=== PATIENT | female | born 1960 | race Caucasian/White ===

== ENCOUNTER 2023-05-09 09:13 | Outpatient (CLI) | payer OTHER, SELFPAY | END 2023-05-09 09:14 | disposition home or self-care (01) | PROVIDERS: PCP Nurse Practitioner Family; Visit Provider Nurse Practitioner Family | DX: Z01.818 Encounter for other preprocedural examination (principal); E06.3 Autoimmune thyroiditis | CPT/HCPCS: 80048; 84443; 85025 ==

== ENCOUNTER 2023-05-15 07:03 | Day surgery (SDC) | payer MEDICAID, SELFPAY ==
[2023-05-15] VITALS (8 sets, daily range): BP systolic 102–126; BP diastolic 65–85; PULSE 58–90; RESP 16; TEMP 36.6; O2SAT 99–100; BMI 26.2
[2023-05-15] MEDS: LACTATED RINGERS 1000 ML 1,000 ML 100 ML IV (07:50)
[2023-05-15] MEDS: SODIUM CHLORIDE 0.9 % (FLUSH) 10 ML SYRINGE IVF (07:50)
[2023-05-15] MEDS: fentaNYL 100 MCG/2 ML inj IVP (07:53)
[2023-05-15] MEDS: MIDAZOLAM HCL 1 MG/ML inj IVP (07:53)
--- NOTE | 2023-05-15 08:11 | SUR.PREOP ---
TIME?OUT:?0753 PT/alexander milton RN/aric winslow CRNA/ aric michael CRNA?VERIFICATION?OF?SURGICAL?SITE,?PROCEDURE,?AND?CONSENT OBTAINED?PRIOR?TO?INVASIVE?PROCEDURE.
--- NOTE | 2023-05-15 08:22 | W.PM.H&PU ---
History & Physical Update History & Physical Update H&P Reviewed and patient assessed: No changes noted
[2023-05-15] MEDS: CEFAZOLIN 2 GM in 0.9 % SODIUM CHLORIDE Mini-bag 100 ML IVPB (08:24)
--- NOTE | 2023-05-15 08:30 | CRLHL7_ITS ---
For Patients: As a result of the Cures Act, medical imaging exams and procedure reports are released immediately into your electronic medical record. You may view this report before your referring provider. If you have questions, please contact your health care provider. Indication: ORIF LEFT WRIST Technique: Two views left wrist. Fluoroscopic time 11.4 seconds. IMPRESSION: Fluoroscopic guidance for ORIF distal radial fracture. Dictated by Saad Llanos MD @ 05/15/2023 11:22:29 AM (Electronically Signed)
--- NOTE | 2023-05-15 08:41 | W.PM.NB ---
Nerve Block Nerve Block Time Seen by Provider: 08:10 Date Seen: 05/15/23 Type of block requested by surgeon for post-operative analgesia: axillary Side: left Time out performed: Yes Verification of patient name: Yes Verification of date of : Yes Site marking: site marked Name of person performing procedure: Hamida Continuous monitoring Was continuous monitoring of O2 sat, B/P, ekg monitor tech, recorded every 15 minutes?: Yes Procedure Checklist: sterile prep and needles Ultrasound guided. Images saved: Yes Medications given in 5ml increments after negative aspiration: Ropivicaine %: 0.50 mL: 20 Needle gauge: 22 Decadron (mg): 10 Precedex (mcg): 20 Patient tolerated procedure well: Yes Block Charges Block Charge (with Pro Fee): Axillary Nerve Use of Ultrasound Machine for Block: Yes- US Guidance/pain block
--- NOTE | 2023-05-15 08:54 | PM.ORPRC ---
Procedure Note Date of procedure: 05/15/23 Procedure: PREOPERATIVE DIAGNOSES: 1. Left distal radius fracture extra-articular, dorsally angulated and displaced, 2 part 2. Left distal ulna metadiaphyseal fracture POSTOPERATIVE DIAGNOSES: 1. Left distal radius fracture extra-articular, dorsally angulated and displaced, 2 part 2. Left distal ulna metadiaphyseal fracture NAME OF OPERATION: 1. Left distal radius open reduction with internal fixation of extra-articular, 2 part. 2. Left distal ulna metadiaphyseal fracture closed treatment. SURGEON: Ihsan Edouard MD VICE PRESIDENT NETWORK DEVELOPMENT: Alan Duke - Of note, an hospital clinic assistant was critical for this case to aide in patient positioning, limb manipulation, tissue retraction, closure, and splinting. ANESTHESIA: Supraclavicular block plus MAC EBL: 5 mL IMPLANTS: Synthes dual column volar locking plate with 2.7 mm proximal nonlocking cortical screw and 2.4 proximal locking screws and distal locking pegs. TOURNIQUET: 25 minutes at 225 torr.. INDICATIONS: The patient is a pleasant, 62-year-old female who sustained a left wrist injury after a fall. They had difficulty with use of the extremity and deformity. Workup included xrays which revealed an unstable fracture. Given these findings, surgery was recommended to stablize the fracture. FINDINGS: Closed, dorsally angulated and displaced distal radius fracture. The distal ulna fracture was treated closed.. PROCEDURE: Following a thorough discussion of risks, benefits, and alternatives, consent was obtained and the operative extremity was marked. The patient was brought to the operating room and placed supine on the operating table. Induction of anesthesia was achieved. Appropriate time out was performed identifying proper patient, site and procedure. 1 gram of iv Ancef was administered within 1 hour of incision preoperatively. The left upper extremity was prepped and draped in the appropriate sterile fashion using ChloraPrep prep. The limb was exsanguinated and the tourniquet inflated. A longitudinal incision was made overlying the FCR tendon. Sharp incision through skin and subcutaneous tissue allowed identification of the FCR tendon. The superficial sheath was sharply divided, the tendon retracted ulnarly, and the deep fascial sheath also released. The FPL was retracted ulnarly and the pronator quadratus was sharply released from the radial border of the radius and subperiosteally elevated. The fracture was encountered and cleared of interposed periosteum / fracture hematoma. A reduction was performed and the appropriate plate selected. Temporary stabilization allowed C-arm fluoroscopy to confirm proper fracture reduction and plate positioning. The oblong hole was filled with a nonlocking screw followed by multiple distal locking pegs being careful to keep these in subchondral bone and extraarticular. Finally, the remaining proximal shaft screws were drilled and placed. Fluoroscopic imaging confirmed the improved position and showed the fracture to be stable. At this stage, the wound was thoroughly irrigated with normal saline. Closure performed with 0 Vicryl for the pronator quadratus, followed by deflation of the tourniquet. All major bleeding points were cauterized. Closure was then completed with 3-0 Vicryl for the subcutaneous, and 4-0 statafix for subcuticular closure. Dressings were applied along with a volar/dorsal splint. The patient was awoken from anesthesia and transferred to PACU in stable condition. PLAN: 1. Elevate operative extremity. 2. Ice, acetominphen or ibuprofen PRN. 3. Oxycodone for pain as needed. 4. Follow up with PA visit in 7-14 days for wound check, splint removal transition to a short-arm cast. 5. Follow-up at the 3 week tori post surgery for removal of cast.
[2023-05-15] MEDS: OxyCODONE/APAP 5-325 TABLET PO (09:20)
--- NOTE | 2023-05-15 09:22 | W.ANESCHARGE ---
Anesthesia Charges Start Date/Time Anesthesia Start Date: 05/15/23 Anesthesia Start Time: 08:13 Stop Date/Time Anesthesia Stop Date: 05/15/23 Anesthesia Stop Time: 09:17
== END 2023-05-15 10:23 | disposition home or self-care (01) ==
PROVIDERS: PCP Nurse Practitioner Family; Visit Provider Orthopaedic Surgery Sports Medicine
PROC: (CPT 25575; principal; 2023-05-15 08:30)
DX: S52.552A Other extraarticular fracture of lower end of left radius, initial encounter for closed fracture (principal); S52.692A Other fracture of lower end of left ulna, initial encounter for closed fracture; G89.18 Other acute postprocedural pain
CPT/HCPCS: 25607; 01830; 64417; 73100; 73110; 76000; 76942; A4580; A9270; C1713; J0690; J1100; J2250; J2405; J2704; J2795; J3010; J7120

== ENCOUNTER 2023-05-30 18:57 | Outpatient (CLI) | payer MEDICAID, SELFPAY ==
--- NOTE | 2023-05-30 19:20 | MM_ITS ---
Patient: MU DEAN Facility:?[facility] Patient ID:?[id number] Site Patient ID:?[id number] Site :?[id number] Study:?XRay-Breast 3D w/ CAD-05/30/2023 11:20:25 AM Ordering Physician:Reva Velazco Final Report: BILATERAL SCREENING MAMMOGRAM WITH COMPUTER-AIDED DETECTION AND TOMOSYNTHESIS TECHNIQUE: CC and MLO views were obtained. These mammographic images have been obtained using full-field digital technique. These mammographic images were interpreted with the benefit of computer-aided detection. Breast Tomosynthesis was used in this interpretation. COMPARISON FILM: 01/02/20, 07/31/18, 04/06/17. FINDINGS: There are scattered areas of fibroglandular density IMPRESSION: There is no radiographic evidence for malignancy. ASSESSMENT: BI-RADS Category 1: Negative RECOMMENDATION: Routine screening mammogram in 1 year. A lay language report of this examination will be provided to the patient. Saad Llanos M.D. Diagnostic Radiologist [email or web address]/[email or web address] R/ Transcribed: 3:14 p.m. CHAI/Dictated by: Saad Llanos MD @ 06/05/2023 1:03:00 PM Signed by:?Saad Llanos MD @06/05/2023 3:42:00 PM (Electronic Signature)
== END 2023-05-30 18:58 | disposition home or self-care (01) ==
LOC: MAMMO 19:02
PROVIDERS: PCP Nurse Practitioner Family; Visit Provider Nurse Practitioner Family
DX: Z12.31 Encounter for screening mammogram for malignant neoplasm of breast (principal)
CPT/HCPCS: 77063; 77067

== ENCOUNTER 2023-10-10 14:15 | Outpatient (RCR) | payer MEDICAID, SELFPAY ==
--- NOTE | 2023-06-08 07:36 | OT.OPOE ---
OT Outpatient Ortho Eval OT Outpatient Ortho Eval* Start: 06/07/23 16:00 Freq: Status: Active Protocol: Document 06/07/23 07:09 AMB (Rec: 06/08/23 07:30 AMB [id number]) E-signed By Katia Mejia, OTR/L, CLT, SPRAY CEMENTER OT OP Ortho Eval Details Complexity Complexity Low Insurance Information Other Insurance Self Pay Outpatient History/Precautions Current Condition/Medical Diagnosis Referring Provider Cheikh Boone PA-C Treatment Diagnosis Pain, swelling, limited AROM, weakness LUE secondary to Dr and joel fx, ORIF Date of Onset DOI: 05/05/23, DOS:05/15/23 Precautions Lifting Restrictions Other Conditions Raynauds disease Left wrist fracture Clem's disease Endometriosis History of toxemia of Ankylosing spondylitis Arm fracture Chest wall pain Medical/Functional History Medical History Reviewed Yes Prior Level of Function/Mobility Full, pain-free use of her LUE Social History Employment Status [employer] Employed 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 Pt states she really did not want to have surgery as she doesn't have insurance. Pt had ortho consult with Dr Edouard and decided surgery was the best option. She is really hoping to heal so she can get back to work as a daycare provider. Pt does not have any help in her daycare. It has been recommended that she will likely not be able to return to work until August 08 at the earliest, pt accepts this. Pt's SO has accompanied her to her visit today. She states he has been very helpful. Pt states she has really been trying to move her fingers as they are so swollen and painful but she just can't seem to move them much. Pt states her pain on average is 5/10, her hand throbs, carmona. Pt states her elbow hurts too, she had x- rays on this and there were no fx visualized. Goniometric Comments Goniometric Comments Goniometric Comments 06/07/23 06/07/23 AROM of BUE is WNL throughout with the exception of the LUE forearm, wrist and hand. AROM of the LUE is as follows: Wrist flex: 25 Wrist ext: 0 Wrist UD: [address]: 5 Pronation: 10 Supination: 5 Composite fist: Not able Opposition: tip of IF with lots of encouragement. AROM of MPs: -20-30 AROM of PIPs: 0-25 AROM of DIPs: 0-10 AROM of the elbow: 0-120 AROM of shoulder: WNL OT Objective Data Hand Hand Dominance Right Skin/Wounds/Edema Comments 06/07/23 Incision is covered with surgical glue, significant swelling is present throughout the hand and wrist. Circumferential measurements as follows: Wrist: 17cm Palm: 18.2cm MP heads: 19.4cm P1 of MF: 6.8cm OT Problems Problems Problems Decreased Strength,Decreased Range of Motion,Decreased Dexterity,Pain,Decreased Coordination,Lifting,Gripping, Pinching Other Problems Opening Containers,Dressing Patient Potential Good Assessment Assessment Assessment Pt is a very pleasant 62yo female presenting to OT with pain, swelling, limited ROM and weakness in the RUE secondary to DR and mary fx. s /p ORIF for DR and closed treatment of ulna. Pt is very guarded and needs lots of encouragement to move her hand . Pt is currently not able to work, and is requiring assist with personal cares, cooking, cleaning, etc. Pt will benefit from skilled OT intervention to address limitations and restore full, pain-free use of the LUE in order to RTW and independence with all self cares and household management. Occupational Therapy Treatment Plan - OP Potential Rehabilitation Potential Good Set Goals Goals Set with Patient Yes Goals Goals 1. Pt will be independent and compliant with HEP in order to resume full, pain-free use of the involved UE. 3 weeks 2. Pt will demonstrate full, pain-free AROM of the involved UE in order to improve ability to grasp and hold. 6 weeks 3. 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 8 weeks. Target Date 09/05/23 Treatment Plan Treatment Plan Edema Control,Joint Mobilization,Manual Therapy, Splinting,Wound Care/Scar Management,Therapeutic Exercise,Therapeutic Activities,Self Care/Home Management,Education Expected Frequency 1-2x Week Expected Duration 8-10 Weeks Home Program Home Program Home Program Initiated Home Program Specifics 06/07/23 Provided training and practice in HEP for AROM and non resisted mm pumps for edema reduction of the LUE. Following demo, pt is able to complete exs with minimal cues . Pt completed 10 reps of each ex. Pt was provided with written handout of all exs for use at home as well. Recertification Information Recertification Information Initial Certification Date 06/08/23 Recertification Due Date 09/06/23 Reasons to Continue Skilled Therapy Initiated OT to address LUE limitations / pain due to DR and ulnar fx. Rehabilitation Potential Good Click To Default 'Per treatment plan' Per treatment plan Continued Plan of Care and Interventions Per treatment plan Provider Signature Shows Agreement With POC & Medical Necessity Physician Comment/Change Comment or Changes Physician NPI Number #
== END 2024-02-07 23:59 | disposition home or self-care (01) ==
PROVIDERS: PCP Nurse Practitioner Family; Visit Provider Physician Assistant Surgical
DX: Z98.890 Other specified postprocedural states (principal); R52 Pain, unspecified; R60.9 Edema, unspecified; R53.1 Weakness; Z51.89 Encounter for other specified aftercare
CPT/HCPCS: 97032; 97033; 97110; 97140; 97165; 97530; 97535; L3806; X5282

== ENCOUNTER 2024-06-11 18:36 | Outpatient (CLI) | payer MEDICAID, SELFPAY ==
--- NOTE | 2024-06-11 19:00 | CRLHL7_ITS ---
For Patients: As a result of the Century Cures Act, medical imaging exams and procedure reports are released immediately into your electronic medical record. You may view this report before your referring provider. If you have questions, please contact your health care provider. BILATERAL SCREENING MAMMOGRAM WITH COMPUTER-AIDED DETECTION AND TOMOSYNTHESIS TECHNIQUE: CC and MLO views were obtained. These mammographic images have been obtained using full-field digital technique. These mammographic images were interpreted with the benefit of computer-aided detection. Breast Tomosynthesis was used in this interpretation. COMPARISON FILM: 05/30/23, 07/31/18, 04/06/17. FINDINGS: The breasts are almost entirely fatty. IMPRESSION: There is no radiographic evidence for malignancy. ASSESSMENT: BI-RADS Category 2: Benign RECOMMENDATION: Routine screening mammogram in 1 year. A lay language report of this examination will be provided to the patient. Saad Llanos M.D. Diagnostic Radiologist [email or web address] SP/Dictated by: Saad Llanos MD @ 06/12/2024 10:23:00 AM (Electronically Signed)
== END 2024-06-11 18:37 | disposition home or self-care (01) ==
LOC: MAMMO 18:36
PROVIDERS: PCP Nurse Practitioner Family; Visit Provider Nurse Practitioner Family
DX: Z12.31 Encounter for screening mammogram for malignant neoplasm of breast (principal)
CPT/HCPCS: 77063; 77067